=== PATIENT | female | born 1960 | race Caucasian/White ===

== ENCOUNTER 2023-10-31 17:02 | Emergency (ER) | payer BC, OTHER ==
[~2023-10-31] VITALS: Ht 162.6 cm; Wt 67.6 kg
[2023-10-31 17:05] VITALS: BP_SYST 148; PULSE 77; RESP 18; TEMP 98.1; O2SAT 95
[2023-10-31 18:06] LABS: BILIRUBIN,URINE 1+ (NEGATIVE); BLOOD, URINE 3+ (NEGATIVE); CLARITY/URINE CLEAR (CLEAR); COLOR,URINE YELLOW (YELLOW); GLUCOSE,URINE TRACE (NEGATIVE); KETONES,URINE TRACE (NEGATIVE); LEUKOCYTE ESTERASE ,URINE NEGATIVE (NEGATIVE); NITRITE, URINE POSITIVE (NEGATIVE); PROTEIN URINE 2+ (NEGATIVE)
[2023-10-31 18:31] LABS: BACTERIA,URINE FEW /HPF (None Seen); RBC,URINE >100 /HPF (0-3); WBC,URINE >100 /HPF (0-3)
[2023-10-31] MEDS ORDERED: PHEN-726 PO (19:59)
[2023-10-31] MEDS ORDERED: IBUP-1969 PO (19:59)
[2023-10-31] MEDS ORDERED: CIPR-260 PO (19:59)
[2023-10-31 20:15] VITALS: O2SAT 96
[2023-10-31] MEDS ORDERED: KETOROLAC TROMETHAMINE 30 MG VIAL IM ONE (20:30)
[2023-10-31 20:40] VITALS: BP_SYST 188; PULSE 71; RESP 16; TEMP 98
== END 2023-10-31 20:40 | disposition home or self-care (01) ==
LOC: SED 17:02
DX: N30.91 Cystitis, unspecified with hematuria (principal); R30.0 Dysuria; R30.9 Painful micturition, unspecified; R10.2 Pelvic and perineal pain; I10 Essential (primary) hypertension; Z88.0 Allergy status to penicillin; Z79.899 Other long term (current) drug therapy
CPT/HCPCS: 99285; 74176; 81001; 87086; 76376; 96372; 81000; 81015; J1885